=== PATIENT | male | born 1970 | race Hispanic/Latino ===

== ENCOUNTER 2017-11-17 18:24 | Emergency (ER) | payer OTHER ==
[2017-11-17] MEDS ORDERED: HYDROcodone/Acetaminophen 10/325 mg Tablet ONE (18:46)
== END 2017-11-17 18:51 | disposition home or self-care (01) ==
LOC: ERS 18:24
DX: S39.012A Strain of muscle, fascia and tendon of lower back, initial encounter (principal); X58.XXXA Exposure to other specified factors, initial encounter
CPT/HCPCS: 99283

== ENCOUNTER 2018-10-18 08:49 | Outpatient (CLI) | payer OTHER ==
--- NOTE | 2018-10-18 09:32 | ULT ---
SCROTAL ULTRASOUND: Indication: Right sided testicular pain and swelling. Technique: Grayscale, color doppler, and spectral doppler images were obtained of the scrotum. FINDINGS: Right testicle measures 4.3 x 3.2 x 3.3 cm and the left testicle measures 4.5 x 2.5 x 3 cm. There is a large right and small left hydrocele. There is normal flow to both ovaries. Epididymi appear within normal limits. IMPRESSION: 1. No evidence of testicular mass or torsion demonstrated. 2. Large right small left sided hydrocele. POS: OFF
== END 2018-10-18 08:50 | disposition home or self-care (01) ==
LOC: BICULT 08:49
PROVIDERS: ATTEND Family Medicine
DX: N50.89 Other specified disorders of the male genital organs (principal); N43.3 Hydrocele, unspecified
CPT/HCPCS: 76870; 93976

== ENCOUNTER 2019-01-08 05:13 | Outpatient (CLI) | payer OTHER ==
--- NOTE | 2019-01-08 12:48 | EKG ---
Test Reason : Blood Pressure : / mmHG Vent. Rate : 068 BPM Atrial Rate : 068 BPM P-R Int : 146 ms QRS Dur : 080 ms QT Int : 370 ms P-R-T Axes : 047 080 044 degrees QTc Int : 393 ms Normal sinus rhythm Normal ECG Confirmed by DR. Genny VIVAS ([id number]) on 01/08/2019 12:47:30 PM Referred By: KENNY Confirmed By:DR. Genny VIVAS
== END 2019-01-08 05:14 | disposition home or self-care (01) ==
LOC: LABBT 05:13
PROVIDERS: ATTEND Urology
DX: Z01.810 Encounter for preprocedural cardiovascular examination (principal); N40.0 Benign prostatic hyperplasia without lower urinary tract symptoms
CPT/HCPCS: 93005; 93010

== ENCOUNTER 2019-01-15 05:54 | Day surgery (SDC) | payer OTHER ==
[2019-01-08 08:38] VITALS: BMI 25.8
[2019-01-15] MEDS ORDERED: Famotidine/PF 20 mg/2ml Vial ONE (06:53)
[2019-01-15] MEDS ORDERED: Fentanyl 100 MCG/2 ML VIAL ONE ×2 (06:53)
[2019-01-15] MEDS ORDERED: Methylergonovine 0.2 MG/ML VIAL ONE (07:11)
[2019-01-15] MEDS ORDERED: Midazolam HCl 2 mg/2 ml Vial ONE (07:11)
[2019-01-15] MEDS ORDERED: Bupivacaine 0.25% HCL 30 ML VIAL ONE (07:11)
[2019-01-15] MEDS ORDERED: Bacitracin Zinc Ointment 30 gm TUBE ONE (07:51)
--- NOTE | 2019-01-15 08:36 | OP ---
DATE OF PROCEDURE: 01/15/2019 PREOPERATIVE DIAGNOSIS: Right hydrocele. POSTOPERATIVE DIAGNOSIS: Right hydrocele. PROCEDURE PERFORMED: Right hydrocelectomy. ANESTHESIA: General. COMPLICATIONS: None. SPECIMEN: None. ESTIMATED BLOOD LOSS: 10 mL. DESCRIPTION OF PROCEDURE: After informed consent, the patient was taken to the operating room, transferred to the table on his own power. Anesthesia was established. A time-out was performed showing correct patient, site, and procedure. Preoperative antibiotics were administered. He was prepped and draped in the supine position. A transverse scrotal incision was performed over the right hemiscrotum. This was carried down through dartos with electrocautery. The hydrocele sac was bluntly dissected and delivered through the incision. The sac was carefully entered and drained. The entirety of the sac was removed with electrocautery. Care was taken to cauterize the remaining edges. The testicle was examined noting no abnormalities. I then performed a cord block with 10 mL and instilled the rest of the 20 mL of 0.25% Marcaine into the scrotal tissue surrounding the incision. I then placed a [place] drain through the dependent portion of the scrotum and sutured this in place with a nylon suture. Dartos was closed with Vicryl suture and skin was closed with chromic suture. The wound was dressed with antibiotic ointment, gauze, and tape. Job ID: [id number]
[2019-01-15] MEDS ORDERED: Ondansetron PF 4 MG/2 ML Vial ONE (10:44)
[2019-01-15] MEDS ORDERED: Ketorolac Tromethamine 30 MG/ML VIAL ONE (10:44)
[2019-01-15] MEDS ORDERED: Dexamethasone 20 MG/5 ML VIAL ONE (10:44)
[2019-01-15] MEDS ORDERED: Bupivacaine HCl 0.5%/Epinephrine 1:200,000/PF 30 ml Vial ONE (12:17)
[2019-01-15] MEDS ORDERED: Heparin 5,000 UNITS/ML VIAL ONE (12:17)
[2019-01-15] MEDS ORDERED: Lidocaine 2% PF 5 ML VIAL ONE (12:17)
[2019-01-15] MEDS ORDERED: Ioversol 68 % 50 ML VIAL ONE (12:17)
[2019-01-15] MEDS ORDERED: Protamine Sulfate 50 MG/5 ML VIAL ONE (12:17)
== END 2019-01-15 11:30 | disposition home or self-care (01) ==
LOC: SDC 05:54
PROVIDERS: ATTEND Urology
PROC: 0VB60ZZ Excision of Right Tunica Vaginalis, Open Approach (ICD-10-PCS; principal; 2019-01-15)
DX: N43.3 Hydrocele, unspecified (principal); N45.1 Epididymitis; N52.01 Erectile dysfunction due to arterial insufficiency; Z79.899 Other long term (current) drug therapy
CPT/HCPCS: J0131; J0690; J1100; J1885; J2210; J2250; J2405; J3010; S0020; S0028

== ENCOUNTER 2019-09-13 14:21 | Emergency (ER) | payer OTHER ==
[2019-09-13 15:24] LABS: #Lymphocytes 1.2 thou/uL (1.20-3.40); #Monocytes 0.5 thou/uL (0.11-0.59); %Basophils 0.6 % (0.0-1.0); %Eosinophils 0.6 % (0.0-10.0); %Lymphocytes 21.1 % (21.0-51.0); %Monocytes 8.4 % (0.0-10.0); %Neutrophils 69.4 % (42.0-75.0); Hemoglobin 15.4 g/dL (14.0-18.0); Mean Corpuscular HGB CONC 34.5 g/dL (32.0-36.0); Mean Corpuscular Hemoglobin 29.3 pg (27.0-31.0); Mean Corpuscular Volume 84.9 fL (78.0-98.0); Mean Platelet Volume 6.9 fL (7.4-10.4); Platelet Count 178 thou/uL (130-400); RBC Distribution Width 12.6 % (11.5-14.5); Red Blood Cell (RBC) Count 5.25 mill/uL (4.70-6.10); White Blood Cell (WBC) Count 5.7 thou/uL (4.8-10.8)
--- NOTE | 2019-09-13 15:39 | RAD ---
ONE VIEW CHEST: 09/13/19 HISTORY: Positive COVID test. COMPARISON: None. FINDINGS: Normal cardiac silhouette. The lungs and pleural spaces are clear. No pneumothorax or acute osseous a bnormalities. IMPRESSION: No acute cardiopulmonary process. POS: [facility]
[2019-09-13] MEDS ORDERED: Meclizine HCl 25 MG TAB ONE (15:42)
[2019-09-13 15:44] LABS: ALT (SGPT) 21 U/L (8-55); AST (SGOT) 14 U/L (5-34); Albumin 4.4 g/dL (3.5-5.0); Alkaline Phosphatase 83 U/L (40-110); Anion Gap 11 mmol/L (10-20); BUN (Urea Nitrogen) 5 mg/dL (8.9-20.6); Bilirubin, Total 0.3 mg/dL (0.2-1.2); CK (CPK) 62 U/L (30-200); Calc. Creatinine Clearance 0 mL/min (70-130); Calcium 9.3 mg/dL (7.8-10.44); Carbon Dioxide 27 mmol/L (22-29); Chloride 106 mmol/L (98-107); Estimated GFR-MDRD Greater than 90; Glucose 107 mg/dL (70-105); Potassium 3.6 mmol/L (3.5-5.1); Protein, Total 7.4 g/dL (6.0-8.3); Sodium 140 mmol/L (136-145)
== END 2019-09-13 16:05 | disposition home or self-care (01) ==
LOC: ERS 14:21
DX: U07.1 COVID-19 (principal); R42 Dizziness and giddiness
CPT/HCPCS: 71045; 80053; 82550; 83605; 85025; 93005; 94760

== ENCOUNTER 2022-10-22 16:30 | Emergency (ER) | payer BC, OTHER ==
[2022-10-22 17:31] LABS: #Basophils 0.1 thou/uL (0.0-0.2); #Eosinphils 0.3 thou/uL (0.0-0.7); #Monocytes 0.4 thou/uL (0.11-0.59); #Neutrophils 4.3 thou/uL (1.40-6.50); %Basophils 0.7 % (0.0-1.0); %Eosinophils 4.6 % (0.0-10.0); %Lymphocytes 24.6 % (21.0-51.0); %Monocytes 6.5 % (0.0-10.0); %Neutrophils 63.3 % (42.0-75.0); Hematocrit 44.8 % (42.0-52.0); Hemoglobin 15.4 g/dL (14.0-18.0); Mean Corpuscular HGB CONC 34.4 g/dL (32.0-36.0); Mean Corpuscular Hemoglobin 29.1 pg (27.0-31.0); Mean Corpuscular Volume 84.7 fl (78.0-98.0); Mean Platelet Volume 8.7 fL (7.4-10.4); Platelet Count 201 10x3/uL (130-400); RBC Distribution Width 12.2 % (11.5-14.5); Red Blood Cell (RBC) Count 5.29 mill/uL (4.70-6.10); White Blood Cell (WBC) Count 6.8 10x3/uL (4.8-10.8)
[2022-10-22 17:53] LABS: ALT (SGPT) 12 U/L (8-55); AST (SGOT) 12 U/L (5-34); Alkaline Phosphatase 84 U/L (40-110); Anion Gap 12 mmol/L (10-20); BUN (Urea Nitrogen) 10 mg/dL (8.4-25.7); Bilirubin, Total 0.3 mg/dL (0.2-1.2); Calc. Creatinine Clearance 0 mL/min (70-130); Calcium 9.1 mg/dL (7.8-10.44); Carbon Dioxide 23 mmol/L (22-29); Chloride 109 mmol/L (98-107); Estimated GFR 104; Globulin 3.1 g/dL (2.4-3.5); Glucose 147 mg/dL (70-105); Lipase 39 U/L (8-78); Potassium 4.1 mmol/L (3.5-5.1); Protein, Total 7.1 g/dL (6.0-8.3); Sodium 140 mmol/L (136-145)
[2022-10-22] MEDS ORDERED: Ketorolac Tromethamine 30 MG/ML VIAL ONE (19:13)
== END 2022-10-22 19:52 | disposition home or self-care (01) ==
LOC: ERS 16:30
DX: M54.50 Low back pain, unspecified (principal)
CPT/HCPCS: 36415; 80053; 83690; 85025; 96372; 99283; J1885